=== PATIENT | male | born 1940 | race Caucasian/White ===

== ENCOUNTER → 2024-12-06 13:00 | Outpatient (REF) | payer MEDICARE, OTHER, SELFPAY | LOC: RAD 13:00 | PROVIDERS: ATTENDING PHYSICIAN Surgery Vascular Surgery; FAMILY PHYSICIAN Internal Medicine; OTHER PHYSICIAN Internal Medicine Interventional Cardiology | DX: I65.23 Occlusion and stenosis of bilateral carotid arteries (principal) | CPT/HCPCS: 70496; 70498; Q9967 ==

== ENCOUNTER 2025-01-23 06:10 | Inpatient (IN) | payer MEDICARE, OTHER, SELFPAY ==
[2025-01-11 11:24] LABS: INR 0.95; PT 13.2 Sec (11.4-14.6)
[2025-01-11 11:25] LABS: APTT 29.8 Sec (23.4-35.0)
[2025-01-11 11:31] LABS: Hematocrit 32.2 % (39.0-52.0); Hemoglobin 11.0 g/dL (13.0-18.0); Mean Corp Hgb Conc. 34.2 g/dL (33.0-37.0); Mean Corpuscular Volume 92.5 fL (80.0-94.0); Nucleated Red Blood Cells % 0 % (-); Platelet Count 329 10^3/uL (130-400); Red Cell Dist. Width 13.1 % (11.5-14.5)
[2025-01-11 12:04] LABS: Blood Urea Nitrogen 37 mg/dl (9-20); Calcium 9.4 mg/dl (8.4-10.2); Carbon Dioxide 26 mmol/L (22-30); Chloride 103 mmol/L (98-107); Glucose 83 mg/dl (70-99); Potassium 4.9 mmol/L (3.5-5.1); Sodium 136 mmol/L (135-145); eGFR 39.51
[2025-01-11 13:03] VITALS: BMI 26.1
--- NOTE | 2025-01-17 16:07 | PTCARENOTE ---
Creatinine 1.7 and eGFR 39.51 both collected on 01/11/25; Becky at 's office was notified.
[2025-01-23] VITALS (11 sets, daily range): BP systolic 113–162; BP diastolic 55–68; BMI 26.1
[2025-01-23] MEDS: PERIDEX 0.12% ORAL RINSE 15 ML PO (07:04)
[2025-01-23] MEDS: BACTROBAN NASAL 1 GRAM NASAL (07:09)
[2025-01-23] MEDS: NSS 500 IV (07:09)
[2025-01-23] MEDS: VANCOCIN 200 IV (07:25)
--- NOTE | 2025-01-23 07:29 | W.SUR.PREOP ---
Pre-Operative Surgical Note
-
I have examined this patient prior to the performance of the scheduled procedure.
The patient's condition is unchanged from the time of the current History and
Physical and the patient is able to undergo the scheduled procedure.
[2025-01-23 08:48] LABS: ACT-LR - POC 295 Seconds (116-155)
[2025-01-23 09:25] LABS: ACT-LR - POC 237 Seconds (116-155)
--- NOTE | 2025-01-23 10:17 | OR.RPT ---
Operative Report
Operative Report
Date of Operation: 01/23/2025
Pre Op Diagnosis: Left carotid stenosis, asymptomatic
Post Op Diagnosis: Left carotid stenosis, asymptomatic
Procedure: LEFT carotid endarterectomy with patch angioplasty using bovine pericardium
Surgeon: Herber Virk III, MD
Janitor Supervisor: Haresh Steen MD PGY2
Anesthesia: General
Complications: None
History and Indications for Procedure: 84-year-old male with high-grade stenosis of the left internal carotid artery.
Procedure in Detail: Davy Stone was correctly identified and placed supine on the operating table. After adequate induction of anesthesia the left neck was positioned, prepped and draped in the usual sterile fashion. Preoperative antibiotics
were administered. A timeout procedure was performed with the nursing and anesthesia staff confirming the patients identity as well as the nature and laterality of the procedure.
The carotid bifurcation was marked with ultrasound at the beginning of the case. The incision was planned accordingly. An incision was made along the anterior border of the left sternocleidomastoid muscle. Electrocautery was used to divide the
subcutaneous tissue and platysma. The carotid sheath was entered with sharp dissection. The internal jugular vein was retracted laterally. The vagus nerve was identified and protected throughout the case. The common carotid artery was identified at
the base of this incision and carefully encircled with a vessel loop. The patient was systemically heparinized. The dissection was continued distally towards the carotid bifurcation. The facial vein was skeletonized, ligated and divided between ties
and clips. The proximal external carotid artery was encircled with a vessel loop. The distal internal carotid artery was encircled with a vessel loop at a soft spot on the artery beyond the plaque. The hypoglossal nerve was identified and protected.
The internal vessel loop was secured followed by the common and external. An arteriotomy was made on the distal common carotid artery with an 11-blade. This was extended proximally and distally with Trinh scissors. The arteriotomy was extended
distally through the plaque to an area of normal appearing internal carotid artery. The distal vessel loop was replaced with a short tip hockey-stick type vascular clamp. An endarterectomy was performed with a [place] elevator in the standard
fashion. The proximal extent of the plaque was transected with scissors. The distal end of the plaque in the internal carotid artery was feathered. No distal intimal flap was identified. The plaque extending into the external carotid artery was
everted. Once the plaque was fully removed the endarterectomy plane was irrigated with heparinized saline and any loose fronds of tissue were removed. A pre-cut piece of bovine pericardium was sewn in place using a running 6-0 Prolene suture. Prior
to the completion of the patch the common carotid was allowed to forward bleed and the external was allowed to back bleed. The area under the patch was irrigated with heparinized saline to remove any potential thrombus or debris. The anastomosis was
completed.
The external vessel loop was released first, followed by the common and then the internal. There was an excellent pulse in the distal internal carotid artery. An excellent quality Doppler signal in the distal internal carotid artery was also
confirmed. The patch suture line was closely inspected for hemostasis and was achieved. Protamine was administered. Hemostasis was achieved in the wound bed. The wound was irrigated with saline solution.
The wound was then closed in layers. Sterile skin glue was applied. The patient awoke from anesthesia with no immediate neuro deficits and was taken to the PACU in stable condition.
Attestation: I was present and responsible for the entire procedure
Signed:
Herber Virk III, MD
Vascular Surgery
[facility]
[2025-01-23] MEDS: DILAUDID 0.5 MG IV (11:03)
[2025-01-23] MEDS: NSS 1000 IV ×2 (12:03→22:54)
[2025-01-23 12:10] LABS: Hematocrit 26.7 % (39.0-52.0); Hemoglobin 9.1 g/dL (13.0-18.0); Mean Corp Hgb Conc. 34.1 g/dL (33.0-37.0); Mean Corpuscular Volume 93.4 fL (80.0-94.0); Platelet Count 257 10^3/uL (130-400); Red Cell Dist. Width 13.1 % (11.5-14.5)
[2025-01-23 12:22] LABS: APTT 27.6 Sec (23.4-35.0); INR 1.13; PT 14.8 Sec (11.4-14.6)
--- NOTE | 2025-01-23 12:34 | PTCARENOTE ---
arrived via bed from PACU approx 1130, oriented to room, labs, 12 lead, CXR obtained. Neuro exam intact. See admission documentation. Family brought to bedside, updated. Seen by vascular team approx 1220. Taking sips without diff. Ice pack to
L neck. Armboard on art line, congruent with cuff.
--- NOTE | 2025-01-23 12:44 | CON.INTV ---
Consultation
Consultation Request
Date/Time Consultation Requested: 01/23/2025
Date/Time Consultation Performed: 01/23/2025
Requesting Provider:
Performing Provider: Dr. Sheldon Perry
Reason for Consultation: Status post left carotid endarterectomy
Medical History
-
History of Present Illness:
84-year-old man with past medical history significant for hypertension, heart failure, chronic low back pain, nonrheumatic aortic valve stenosis, chronic kidney disease, status post TAVR, history of MR who was diagnosed with carotid stenosis. He
was deemed candidate for revascularization. Underwent left carotic endarterectomy on 01/23/[address] Virk.
Transferred to the critical care unit for further care and monitoring.
Patient denies any significant pain.
Denies headache or blurry vision.
Denies nausea or vomiting.
Surgery underwent without significant complications. Operative report was reviewed.
Past Medical History
Past Medical History: Other (See assessment and plan)
Social History
Tobacco: Non-smoker
Alcohol: None
Drug: None
Family History
Family History: Reviewed & Not Pertinent
Allergies / Home Medications
Allergies
Allergy/AdvReac Type Severity Reaction Status Date / Time
buckwheat Allergy Anaphylaxis Verified 01/23/25 07:11
Penicillins Allergy mouth Verified 01/23/25 07:11
swelling
seaweed Allergy Anaphylaxis Uncoded 01/18/25 15:10
Home Medications
�Medication �Instructions �Recorded �Confirmed �Last Taken �Type
Clobetasol Propionate 1 dose topical PRN PRN scalp 01/18/25 01/18/25 Unknown History
itching
amlodipine 5 mg tablet 5 mg PO QPM 01/18/25 01/23/25 01/22/25 08:00 History
atorvastatin 80 mg tablet 80 mg PO QPM 01/18/25 01/23/25 01/21/25 17:00 History
benazepril 40 mg tablet 40 mg PO DAILY 01/18/25 01/23/25 01/22/25 08:00 History
cholecalciferol (vitamin D3) 50 50 mcg PO DAILY 01/18/25 01/23/25 01/22/25 08:00 History
mcg (2,000 unit) capsule (Vitamin
D3)
clonazepam 0.5 mg tablet 0.5 - 0.75 mg PO PRN PRN sleep 01/18/25 01/23/25 01/22/25 21:30 History
clopidogrel 75 mg tablet 75 mg PO QPM 01/18/25 01/23/25 01/22/25 21:00 History
ezetimibe 10 mg tablet 10 mg PO DAILY 01/18/25 01/23/25 01/22/25 08:00 History
finasteride 5 mg tablet 5 mg PO QPM 01/18/25 01/23/25 01/22/25 08:00 History
gabapentin enacarbil 600 mg 1,200 mg PO QPM 01/18/25 01/23/25 01/22/25 08:00 History
tablet,extended release (Horizant
ER)
glucosamine sulf dipot 1 cap PO DAILY 01/18/25 01/23/25 01/22/25 08:00 History
chlr,msm,chond 550 mg-C 30 mg-brandan
1 mg capsule (Glucosamine
Chondroitin)
ketoconazole 1 % shampoo 1 applic topical PRN PRN scalp 01/18/25 01/18/25 Unknown History
itching
psyllium seed (sugar) oral powder 1 tbsp PO DAILY 01/18/25 01/18/25 Unknown History
spironolactone 25 mg tablet 12.5 mg PO DAILY 01/18/25 01/23/25 01/22/25 08:00 History
venlafaxine 225 mg tablet,extended 225 mg PO DAILY 01/18/25 01/23/25 01/23/25 04:30 History
release 24 hr
vitamin A-vitamin C-vit E-min 1 tab PO DAILY 01/18/25 01/23/25 01/22/25 08:00 History
tablet
clindamycin HCl 300 mg capsule 600 mg PO DIRECTED prior to 01/22/25 01/22/25 Unknown History
dental procedure
Review of Systems
-
History Source: Patient
All other systems: Negative unless noted
Vitals / Labs / Diagnostic Testing
Vital Signs
Temp Pulse Resp BP Pulse Ox
97.8 F 66 20 113/56 97
01/23/25 10:24 01/23/25 12:30 01/23/25 12:30 01/23/25 11:41 01/23/25 11:15
Lab Data
01/23/25 11:56
Laboratory Results
01/23/25
11:56
PT 14.8 H
INR 1.13
APTT 27.6
Diagnostic Testing:
Physical Exam
-
HEENT: Normocephalic, Other ( No stridor on exam, evidence for hematoma) and Other (Left cervical incision intact.)
Cardiovascular: S1/S2
Respiratory: Non-Labored Respirations
GI: Soft and Non Distended
Neurology: Awake and AO x 3
Skin: Warm
General: Comfortable
Assessment
-
84-year-old male with past medical history of carotid artery stenosis-electively admitted for revascularization. Underwent carotid artery stenosis 01/23/2025. Transferred to the critical care unit for postoperative care.
Status post left carotid endarterectomy 01/23/[address] Virk
Conditions present prior admission:
History of TAVR
Coronary artery disease
Hypertension
Chronic low back pain
Chronic lower extremity edema
Chronic kidney disease
MR
Assessment and plan:
Postoperative surgical intensive care unit monitoring
Supplemental oxygen as needed
Incentive spirometry
Aspiration precautions
Chest x-ray 01/23/2025: Reviewed no acute abnormalities. Previous TAVR. Mild elevation of the right hemidiaphragm.
Analgesia with narcotics as needed-monitor respiratory status closely.
Incision without hematoma
No stridor on exam
Neuro and vascular checks per protocol
Vascular surgery following-correspondence and operative notes reviewed
Monitor blood pressure-arterial line in place.
Cardene drip if needed
Restart antihypertensives
Follow hemoglobin
Follow blood sugars
Insulin supplementation as needed
DVT prophylaxis-heparin subcu.
Advance diet as tolerated
-
Maintain ICU monitoring for the next 24 hours
--- NOTE | 2025-01-23 12:49 | CM ---
Initial assessment completed with and daughter. Patient lives with his in a 2 story split level home with B/B on 2nd and 1/2 bath on 1st,1 step to enter. [employer] patient was independent in ADL's and ambulation, drove. He uses a walking stick
on occasion. No DME. No in-home services. No service. Does have a HC-POA. PCP is Dr. Cleve Gresham and Pharmacy is [facility] on [facility]. Discharge POC: Home with no needs.
[2025-01-23 13:06] LABS: Blood Urea Nitrogen 32 mg/dl (9-20); Calcium 8.5 mg/dl (8.4-10.2); Carbon Dioxide 23 mmol/L (22-30); Chloride 105 mmol/L (98-107); Estimated Creatinine Clearance 40 ml/min; Glucose 131 mg/dl (70-99); Potassium 4.8 mmol/L (3.5-5.1); Sodium 132 mmol/L (135-145); eGFR 49.87
--- NOTE | 2025-01-23 14:07 | PTCARENOTE ---
resting. sleep apnea observed both monitored and while watching chest rise, awakens easily. alarms adjusted, remains on oxygen and pulse ox. ordered and awaiting soft lunch.
[2025-01-23] MEDS: ROXICODONE 5 MG PO ×2 (14:28→19:43)
--- NOTE | 2025-01-23 15:50 | W.IMMPOSTOP ---
Surgical Immed Post Op Note
-
Primary Surgeon: Sully
Assisting Surgeon: Celsa
Pre-op Diagnosis: Carotid Stenosis
Post-op Diagnosis: Carotid stenosis
Procedure Performed: left CEA
Anesthesia Type: General
Specimen / Cultures: None
Estimated Blood Loss: 45 cc
Complications: None
Operative Findings: Significant plaque at carotid bifurcation
--- NOTE | 2025-01-23 17:17 | PTCARENOTE ---
no change, neuro exam remains intact. unable to void lying down, stood carefully with assist 2, voided 150 clear yellow. presently in bed, IVs infusing, eating dinner.
[2025-01-23] MEDS: PLAVIX 75 MG PO (17:56)
[2025-01-23] MEDS: LIPITOR 80 MG PO (17:56)
[2025-01-23] MEDS: NORVASC 5 MG PO (17:56)
[2025-01-23] MEDS: PROSCAR 5 MG PO (17:56)
[2025-01-23] MEDS: HEPARIN 5000 UNITS SC (19:43)
[2025-01-23 19:45] LABS: ALT (SGPT) 19 U/L (0-50); AST (SGOT) 39 U/L (17-59); Albumin 4.0 g/dl (3.5-5.0); Alkaline Phosphatase 66 U/L (38-126); Magnesium 1.9 mg/dl (1.6-2.3); Total Protein 6.4 g/dl (6.3-8.2)
--- NOTE | 2025-01-23 20:00 | PTCARENOTE ---
Rec'd pt resting comf in bed, oxycodone 5mg po given for Left neck incis pain, ice applied to site, site ecchy/ approx; TANIYA at 3mm, BAXTER equally, follows commands, SR, R rad jeremy zeroed, approx w/ cuff, positional, goal to keep sbp 100-165, +
pulses, no edema, skin warm/dry, RA, lungs decr in bases, sat 96, + bowel sounds, no bm, abd soft, no n/v, voiding in urinal, bed alarm on
--- NOTE | 2025-01-23 21:48 | PTCARENOTE ---
2 liters nc applied for sat 89
[2025-01-23] MEDS: KLONOPIN 0.5 MG PO (22:54)
--- NOTE | 2025-01-23 22:58 | PTCARENOTE ---
klonopin 5mg po given as requested
--- NOTE | 2025-01-23 22:59 | PTCARENOTE ---
klonopin 0.5mg po given as requested
[2025-01-24] MEDS: ROXICODONE 5 MG PO ×2 (00:02→04:02)
--- NOTE | 2025-01-24 00:03 | PTCARENOTE ---
sys reviewed, changes noted, oxycodone 5mg po given for pain, CHG bath done, linens changed
[2025-01-24 03:24] LABS: Hematocrit 24.6 % (39.0-52.0); Hemoglobin 8.4 g/dL (13.0-18.0); Mean Corp Hgb Conc. 34.1 g/dL (33.0-37.0); Mean Corpuscular Volume 93.9 fL (80.0-94.0); Platelet Count 249 10^3/uL (130-400); Red Cell Dist. Width 13.1 % (11.5-14.5)
[2025-01-24 03:32] LABS: INR 1.05; PT 14.0 Sec (11.4-14.6)
[2025-01-24 03:33] LABS: APTT 26.8 Sec (23.4-35.0)
[2025-01-24 03:47] LABS: Blood Urea Nitrogen 35 mg/dl (9-20); Calcium 8.3 mg/dl (8.4-10.2); Carbon Dioxide 21 mmol/L (22-30); Chloride 106 mmol/L (98-107); Estimated Creatinine Clearance 43 ml/min; Glucose 124 mg/dl (70-99); Potassium 4.8 mmol/L (3.5-5.1); Sodium 133 mmol/L (135-145); eGFR 54.51
--- NOTE | 2025-01-24 04:03 | PTCARENOTE ---
sys reviewed, oxycodone 5mg po given for pain
[2025-01-24 05:31] VITALS: BMI 26.6
[2025-01-24] MEDS: ALDACTONE 12.5 MG PO (08:06)
[2025-01-24] MEDS: HEPARIN 5000 UNITS SC (08:06)
[2025-01-24] MEDS: ZESTRIL 40 MG PO (08:06)
[2025-01-24] MEDS: EFFEXOR XR 225 MG PO (08:06)
[2025-01-24] MEDS: VITAMIN D3 (cholecalciferol) 50 MCG PO (08:06)
[2025-01-24] MEDS: ZETIA 10 MG PO (08:06)
--- NOTE | 2025-01-24 08:08 | W.PN.VS ---
Today's Communication / Plan
-
Plan reviewed with attending Dr. Dayton Aragon
Assessment/Plan
-
Assessment: 84 year old male POD#1 left carotid endarterectomy
Plan:
Discontinue IV fluids
Discontinue arterial line
Continue home medications
OOB to chair with progression to ambulation as tolerated
Possible discharge later today pending patient progression
Subjective Data
-
Date of Service: January 24, 2025
Patient seen and examined at bedside, offers no complaints. Reports well managed post operative pain. Denies nausea, vomiting, fever, and chills.
Objective Data
-
Vital Signs
Temp Pulse Resp BP Pulse Ox
97.5 F 65 20 139/51 96
01/24/25 07:38 01/24/25 08:06 01/24/25 06:00 01/24/25 08:06 01/24/25 06:00
Intake and Output
01/23/25 01/24/25 01/25/25
06:59 06:59 06:59
Intake Total 2300 / 2300
Output Total 1400 / 1400
Balance 900 / 900
Intake:
Oral fluids 680 / 680
IV fluids (Total) 1620 / 1620
NSS 660 / 660
Nss 1,000 ml @ 80 mls/hr IV . 960 / 960
[id number] JACY Rx#:[id number]
Output:
Urine, Voided 1400 / 1400
Lab Results
01/24/25 02:54
01/24/25 02:54
Calcium 8.3 mg/dl (8.4-10.2) L 01/24/25 02:54
Phosphorus 3.5 mg/dl (2.5-4.5) 01/23/25 11:56
Magnesium 1.9 mg/dl (1.6-2.3) 01/23/25 11:56
Total Bilirubin 0.6 mg/dl (0.2-1.3) 01/23/25 11:
Direct Bilirubin 0.4 mg/dl (0.0-0.4) 01/23/25 11:56
AST 39 U/L (17-59) 01/23/25 11:56
ALT 19 U/L (0-50) 01/23/25 11:56
Alkaline Phosphatase 66 U/L (38-126) 01/23/25 11:56
Total Protein 6.4 g/dl (6.3-8.2) 01/23/25 11:
Albumin 4.0 g/dl (3.5-5.0) 01/23/25 11:56
Physical Exam
-
No apparent distress, resting in bed comfortably
Face symmetrical, tongue midline, left neck surgical incision clean, dry, and intact, small area of edema at upper pole of surgical incision, all soft, suture line well approximated and exofin glue intact
No tachycardia
No dyspnea on room air
ABD flat
Moves BL UE and LE to command and sponatenously with equal strength
[2025-01-24 09:37] VITALS: BP 115/58
[2025-01-24] MEDS: TYLENOL 650 MG PO (09:42)
[2025-01-24 11:08] VITALS: BP 120/51
--- NOTE | 2025-01-24 11:29 | W.PN.INTV ---
Addendum entered and electronically signed by Sheldon Plata MD 01/25/25 13:44:
CDI query:
MINERVA on chronic kidney disease stage IIIa
Original Note:
Today's Communication / Plan
Recommendations
Continue postoperative care
Hopefully discharge later today
Sign off
Assessment
-
84-year-old male with past medical history of carotid artery stenosis-electively admitted for revascularization. Underwent carotid artery stenosis 01/23/2025. Transferred to the critical care unit for postoperative care.
Status post left carotid endarterectomy 01/23/[address] Virk
Conditions present prior admission:
History of TAVR
Coronary artery disease
Hypertension
Chronic low back pain
Chronic lower extremity edema
Chronic kidney disease
MR
Assessment and plan:
Postoperative day 1
Postoperative surgical intensive care unit monitoring
Supplemental oxygen as needed
Incentive spirometry-encourage p.o.
Aspiration precautions
Chest x-ray 01/23/2025: Reviewed no acute abnormalities. Previous TAVR. Mild elevation of the right hemidiaphragm.
Pain is controlled.
Incision without hematoma
No stridor on exam
Neuro and vascular checks per protocol-neurologically intact
Vascular surgery following-correspondence and operative notes reviewed
Hemodynamically stable
Continue antihypertensive
Leukocytosis likely reactive. Afebrile
Chronic anemia noted.
DVT prophylaxis-heparin subcu.
Advance diet as tolerated tolerating diet
Increase activity per protocol
-
Hopefully discharge later today.
No additional recommendation
Sign off
Subjective Dataa
Subjective Data
Date of Service:
Date of Service: January 24, 2025
Chief Complaint: [employer] Team Member Follow Up (Status post left carotic endarterectomy)
Subjective:
Patient has no complaints
Denies dizziness or headache
Incisional pain controlled
Tolerating breakfast
Review of Systems
Cardiopulmonary: Dyspnea (n), Dyspnea on Exertion (n) and Cough (n)
GI: Abdominal Pain (n)
Neuro: Headache (n)
Objective Data
Data Reviewed
Vital Signs / I&O / Oxygen:
Vital Signs
Temp Pulse Resp BP Pulse Ox
97.5 F 65 20 139/51 94
01/24/25 07:38 01/24/25 08:06 01/24/25 06:00 01/24/25 08:06 01/24/25 08:05
Intake and Output
01/23/25 01/24/25 01/25/25
06:59 06:59 06:59
Intake Total 2300 / 2380 280 / 280
Output Total 1400 / 1400
Balance 900 / 980 280 / 280
SaO2 94
Nasal Cannula flow liters per 2
minute
Physical Exam
General: Comfortable
HEENT: Normocephalic and Other (No stridor on exam. Incision is intact without hematoma.)
Cardiovascular: S1-S2
Respiratory: Non-Labored Respirations
GI: Soft and Non Distended
Neurology: Awake and No Motor Deficits
Skin: Warm
Labs/Micro/Reports
Lab Data
01/24/25 02:54
01/24/25 02:54
Laboratory Results
01/23/25 01/24/25
11:56 02:54
PT 14.8 H 14.0
INR 1.13 1.05
APTT 27.6 26.8
--- NOTE | 2025-01-24 11:54 | PTCARENOTE ---
He ambulated in the castillo monitored with RN. I reinforced bathing restrictions, driving restrictions, s/s of stroke (impaired balance, visual disturbances, facial droop, slurred speech or no speech, weakness or numbness or tingling on one side of his
body, and to note the time of the onset of his symptoms). When to call 911 such as S/S of stroke or if he develops a severe headache. Also reviewed S/S of infection such as redness, pain & swelling at incision, drainage that is yellow, green, brown
in color, fever chills or mental status changes to call physician or to call 911. HF packet given and reviewed importance of daily weight and that it is a combination of diet, exercise, medications, daily weights and physician follow ups that help
to manage his HF. He and his family verbalized their understanding. He understands no heavy lifting and the importance of handwashing prior to touching his incision, which he should avoid but especially after touching his dog. He also knows not to
let his dog lick his incision. All questions answered at this time. Will continue to monitor.
[2025-01-24 12:00] VITALS: BP 133/51
--- NOTE | 2025-01-24 12:01 | PN.CDI ---
CDI
- -
CDI:
Physician Documentation Request
Admit Date: 01/23/25 06:10
Dear Boni,
Please review the following and provide your response in the progress notes.
Clinical Indicators:
- CKD is stated in the 01/24 [employer] note but no stage is documented.
Laboratory Tests
01/11/25 01/23/25 01/24/25
09:51 11:56 02:54
Creatinine 1.7 H 1.4 H 1.3
eGFR 39.51 49.87 54.51
Please clarify which of the following accurately represents the patient's renal status:
MINERVA on CKD 3a
CKD 3a
Other (please specify
Criteria for MINERVA*
1 Increase in serum creatinine by > or = to 0.3 mg/dL (> or = to 26.5 micromol/L) within 48 hours, OR
2 Increase in serum creatinine to > or = to 1.5 times baseline, which is known or presumed to have occurred within 7 days, OR
3 Urine volume < 0.5 nL/kg/hour for six hours
Stages of Chronic Kidney Disease*
Level Description GFR
G1 Normal or High >90
G2 Mildly decreased 60-89
G3a Mildly to moderately decreased 45-59
G3b Moderately to severely decreased 30-44
G4 Severely decreased 15-29
G5 Kidney failure <15
Use of terms such as suspected, likely, concern for, or probable (associated with a specific diagnosis that is being evaluated, monitored, or treated as if it exists) are acceptable and can be coded in the inpatient setting, when documented at the
time of discharge.
Thank you,
Chelo Chan RN
CDI Specialist
Please use your independent medical judgment in providing your response.
*Source: Kidney Disease: Improving Global Outcomes (KDIGO) 2012
--- NOTE | 2025-01-24 12:50 | CM ---
Patient has been medically cleared for discharge to home with no additional skilled services. Patient arranged for transport home. Admission IMM within 48 hour timeframe of discharge.
[2025-01-24 13:00] VITALS: BP 116/43
--- NOTE | 2025-01-24 13:17 | PTCARENOTE ---
Jasvir Varghese regarding follow-up appointment date and time.
--- NOTE | 2025-01-24 13:23 | W.DS.TRANS ---
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
-
Discharge Instructions:
Sleep Apnea Risk Intermediate
Discharge Diagnosis/Procedures Carotid endarterectomy
Diet As tolerated
Activity No strenuous activity
Driving Restrictions Not until seen by your Dr
Bathing Restrictions OK to Shower
Instructions:
Stand-Alone Forms: Vascular Surg Discharge Instr
Changes to Home Medications: No
Discharge Medications:
DC Medications w/original date entered in [employer]
Clobetasol Propionate 1 dose topical PRN PRN scalp itching 01/18/25
amlodipine 5 mg tablet 5 mg PO QPM Blood Pressure 01/18/25
atorvastatin 80 mg tablet 80 mg PO QPM High Cholesterol 01/18/25
benazepril 40 mg tablet 40 mg PO DAILY Blood Pressure 01/18/25
cholecalciferol (vitamin D3) 50 mcg (2,000 unit) capsule (Vitamin D3) 50 mcg PO DAILY Supplement 01/18/25
clonazepam 0.5 mg tablet 0.5 - 0.75 mg PO PRN PRN sleep 01/18/25
clopidogrel 75 mg tablet 75 mg PO QPM Blood Clot Prevention/Tx 01/18/25
ezetimibe 10 mg tablet 10 mg PO DAILY High Cholesterol 01/18/25
finasteride 5 mg tablet 5 mg PO QPM Urinary Issue 01/18/25
gabapentin enacarbil 600 mg tablet,extended release (Horizant ER) 1,200 mg PO QPM Pain 01/18/25
glucosamine sulf dipot chlr,msm,chond 550 mg-C 30 mg-brandan 1 mg capsule (Glucosamine Chondroitin) 1 cap PO DAILY Supplement 01/18/25
ketoconazole 1 % shampoo 1 applic topical PRN PRN scalp itching 01/18/25
psyllium seed (sugar) oral powder 1 tbsp PO DAILY Constipation 01/18/25
spironolactone 25 mg tablet 12.5 mg PO DAILY Blood Pressure 01/18/25
venlafaxine 225 mg tablet,extended release 24 hr 225 mg PO DAILY Mental Health/Anxiety 01/18/25
vitamin A-vitamin C-vit E-min tablet 1 tab PO DAILY Supplement 01/18/25
clindamycin HCl 300 mg capsule 600 mg PO DIRECTED prior to dental procedure 01/22/25
Home Medication Changes
Pending Results: No
--- NOTE | 2025-01-24 13:40 | PTCARENOTE ---
All discharge instruction read aloud. Highlighted next doctors appointment & medications due tonight. All questions answered. He and his and daughter have a clear understanding on discharge instructions, wound care and activity restrictions.
== END 2025-01-24 14:09 | disposition home or self-care (01) | DRG 38 ==
LOC: ICU 06:10
PROVIDERS: Nurse Practitioner; ADMITTING PHYSICIAN Surgery Vascular Surgery; CONSULT PHYSICIAN Internal Medicine Critical Care Medicine; PRIMARYCARE PHYSICIAN Internal Medicine
PROC: 03UL0KZ Supplement Left Internal Carotid Artery with Nonautologous Tissue Substitute, Open Approach (ICD-10-PCS; 2025-01-23)
PROC: 03CL0ZZ Extirpation of Matter from Left Internal Carotid Artery, Open Approach (ICD-10-PCS; 2025-01-23)
PROC: 03CJ0ZZ Extirpation of Matter from Left Common Carotid Artery, Open Approach (ICD-10-PCS; 2025-01-23)
DX: I65.22 Occlusion and stenosis of left carotid artery (principal); I13.0 Hypertensive heart and chronic kidney disease with heart failure and stage 1 through stage 4 chronic kidney disease, or unspecified chronic kidney disease; N17.9 Acute kidney failure, unspecified; Z95.2 Presence of prosthetic heart valve; I25.10 Atherosclerotic heart disease of native coronary artery without angina pectoris; I50.9 Heart failure, unspecified; N18.9 Chronic kidney disease, unspecified; G89.29 Other chronic pain; Z79.899 Other long term (current) drug therapy
CPT/HCPCS: 35301; 36415; 71045; 71046; 80048; 80076; 83735; 84100; 85025; 85027; 85610; 85730; 86850; 86900; 86901; 88304; 88311; 93005; 95938; 95941; 95955

== ENCOUNTER → 2025-02-27 12:53 | Outpatient (REF) | payer MEDICARE, OTHER, SELFPAY | LOC: RAD 12:53 | PROVIDERS: ATTENDING PHYSICIAN Registered Nurse; FAMILY PHYSICIAN Internal Medicine; REFERRING PHYSICIAN Internal Medicine Interventional Cardiology | DX: I65.23 Occlusion and stenosis of bilateral carotid arteries (principal) | CPT/HCPCS: 93880 ==